=== PATIENT | female | born 1965 | race Caucasian/White ===

== ENCOUNTER 2019-03-18 06:33 | Day surgery (SDC) | payer OTHER ==
[~2019-03-18] VITALS: Ht 149.9 cm; Wt 64.3 kg
[~2019-03-18 06:33] MED LIST: ALLERGY PILL PO; LISINOPRIL PO; METFORMIN PO
[2019-03-18 07:33] VITALS: Ht 149.9 cm; Wt 64.3 kg
[2019-03-18 08:54] VITALS: BP 121/61; PULSE 77; RESP 16
[2019-03-18] MEDS ORDERED: EPHEDrine 25 MG/5 ML SYG IV PRN (09:00)
[2019-03-18] MEDS ORDERED: ONDANSETRON 4 MG INJ IV PRN (09:00)
[2019-03-18] MEDS ORDERED: LABETALOL HCL 20MG INJ IV PRN (09:00)
[2019-03-18] MEDS ORDERED: hydrALAzine 20 MG INJ IV PRN (09:00)
[2019-03-18] MEDS ORDERED: LIDOCAINE 2% (SDV) 5 ML INJ ONE (09:36)
[2019-03-18] MEDS ORDERED: PROPOFOL 40 ML ONE (09:36)
[2019-03-18] MEDS ORDERED: EPHEDrine 25 MG/5 ML SYG ONE (10:02)
[2019-03-18 10:32] VITALS: BP 121/71; PULSE 73; RESP 18
== END 2019-03-18 14:21 | disposition home or self-care (01) ==
LOC: GIL 06:33
PROVIDERS: ATTEND Internal Medicine Gastroenterology
DX: Z12.11 Encounter for screening for malignant neoplasm of colon (principal); K64.4 Residual hemorrhoidal skin tags; I10 Essential (primary) hypertension; E11.9 Type 2 diabetes mellitus without complications; Z79.84 Long term (current) use of oral hypoglycemic drugs
CPT/HCPCS: 82962